=== PATIENT | female | born 1985 | race Caucasian/White ===

== ENCOUNTER 2018-03-09 09:53 | Inpatient (IN) | payer OTHER ==
[2018-03-09] MEDS ORDERED: LIDOCAINE 1% 300 MG/30 ML SDV SC PRN (10:06)
[2018-03-09] MEDS ORDERED: MISOPROSTOL 200 MCG TAB PR PRN (10:06)
[2018-03-09] MEDS ORDERED: OXYTOCIN/RINGERS LACTATE 1,000 ML IV PRN (10:06)
[2018-03-09] MEDS ORDERED: TERBUTALINE SULFATE 1 MG/ML VIAL IV PRN (10:06)
[2018-03-09] MEDS ORDERED: LR 1,000 ML IV PRN (10:06)
[2018-03-09] MEDS ORDERED: IBUPROFEN 600 MG TAB PO PRN (10:06)
[2018-03-09] MEDS ORDERED: EPSOM SALT 454 GM TP PRN (10:06)
[2018-03-09] MEDS ORDERED: OLIVE OIL 118 ML BTL MISC PRN (10:06)
[2018-03-09] MEDS ORDERED: PENICILLIN G POTASSIUM 5,000,000 UNIT in D5W 150 ML IV ONE (10:17)
[2018-03-09 10:41] LABS: PLATELET COUNT 247 10^3/uL (150-400)
[2018-03-09] MEDS ORDERED: LR 500 ML IV PRN (11:09)
[2018-03-09] MEDS ORDERED: OXYTOCIN/RINGERS LACTATE 500 ML IV SCH (11:30)
--- NOTE | 2018-03-09 11:38 | PDGENHP ---
History and Physical History and Physical: CARE: ALPESH Champagne HPI: Patient is a 32 yo G 2 P 1 @ 37.5 weeks that presents to L&D with complaints of PROM on 03/07 at 22:30. She had intermittent contractions at home for past 36 hours but no strong labor. She has not had any exams. She has had clear fluid, afebrile, denies pain or strong contractions at this time. EDC: 03/25/18 which is based on LMP: 06/18/17 which is known. Pt did not have u/ s during this . Her is complicated by: n/a Review of Systems: Constitutional: Denies any fever, chills, or fatigue HEENT: denies any visual changes, difficulty swallowing, hearing loss Cardiovascular: Denies any chest pain, palpitations, leg swelling Respiratory: denies any cough, wheezing, or shortness of breathe GI: Denies any nausea, vomiting, diarrhea, constipation : denies any dysuria, urgency, frequency, vaginal bleeding Musculoskeletal: denies any muscle or bone pain Skin: denies any rashes Neuro: denies any headache, seizures, lightheadedness, dizziness, or loss of consciousness Psychiatric: denies any depression, anxiety, or SI/HI thoughts HISTORY: Previous OB history: 7# Baby Boy 2016, no alcohol, no tobacco Social history: , SAHM Family history: none reported Past medical history: thyroid nodule Past surgical history: thyroid biopsy in 2010 Medications: PNV, blood builder Allergies (list reaction): NKDA LABS: Rh: A+ ABS: Neg Rubella: Immune HbsAg: NR HIV: NR VDRL: NR 1hr: random glucose 95-105 GC: Not tested this Chlamydia: Not tested this Pap: Normal with PCP GBS: positive BMI: (prepreg) 20 PHYSICAL EXAM: Constitutional: WN, A&Ox3 HEENT: normocephalic atraumatic, supple Heart: RRR, no murmur Chest: CTA-B Skin: warm, dry, intact Abdomen: Soft, nontender, gravid SVE: not performed due to prolonged rupture Extremities: no edema, negative homans sign Neuro: grossly normal Psych: normal affect assessment: FHT baseline 140, +accels, no decels, moderate variability Contractions: irregular Assessment: 1) 32 yo G 2 P 1 with IUP@ 37.5 weeks 2) PROM, no active labor 3) GBS pos 4) Cat 1 FHR tracing Plan: 1) Admit to L&D 2) [ ]
[2018-03-09] MEDS ORDERED: OLIVE OIL 118 ML BTL ONE (11:50)
[2018-03-09] MEDS ORDERED: LIDOCAINE 1% 300 MG/30 ML SDV ONE (11:50)
[2018-03-09] MEDS ORDERED: MISOPROSTOL 200 MCG TAB ONE (11:51)
[2018-03-09] MEDS ORDERED: OXYTOCIN 10 UNIT/ML VIAL ONE (11:51)
[2018-03-09] MEDS ORDERED: AMMONIA AROMATIC 1 EACH AMP IH ONE (11:51)
[2018-03-09] MEDS ORDERED: TERBUTALINE SULFATE 1 MG/ML VIAL ONE (11:51)
[2018-03-09] MEDS: PENICILLIN G POTASSIUM 2,500,000 UNIT in D5W 150 ML IV SCH ×2 (15:05→19:04)
--- NOTE | 2018-03-09 16:34 | OBPROG ---
Labor Progress Note Assessment/Plan: Assessment: Term IUP at 37.5 weeks PROM x 42 hours Plan: pitocin augmentation anticipate 03/09/18 16:30 Subjective/Intrapartum Course: 03/09/18 16:31 VSS, ctx irregular, denies pain, continues to leak clear fluid Objective: 03/09/18 10:15 Patient ABO/Rh A POSITIVE 03/09/18 10:15 VSS, afebrile - SVE Membranes: SROM Amniotic Fluid Color: Clear - Contraction Pattern Assessment Current Contraction Pattern: Irregular - AP Antepartum Course: 03/09/18 16:35 Denies painful ctx, FOB and RM at bedside for support, pitocin at 7mU - Physical Exam General Appearance: WD/WN, alert Estimated Weight: 2501-3400g CNM Assessment - Uterine Assessment Contraction Strength: Mild Uterine Resting Tone: Palpates Soft Oxytocin Orders Assessment - Pre-Induction/Augmentation Assessment Gestational Age: 37 week(s) and 5 day(s) ICD10 Worksheet Patient Problems: Problems Problem Status Onset Premature rupture of membranes Acute
--- NOTE | 2018-03-09 19:16 | OBPROG ---
Labor Progress Note Assessment/Plan: Assessment: Term IUP at 37.5 weeks PROM x 42 hours Plan: pitocin augmentation anticipate 03/09/18 16:30 Subjective/Intrapartum Course: 03/09/18 16:31 VSS, ctx irregular, denies pain, continues to leak clear fluid 03/09/18 19:15 Feeling stronger contractions, requests SVE. Objective: 03/09/18 10:15 Patient ABO/Rh A POSITIVE 03/09/18 10:15 - SVE Dilation (cm): 6 Effacement (%): 80 Station: -1 Membranes: SROM Amniotic Fluid Color: Clear - Contraction Pattern Assessment Current Contraction Pattern: Regular (2-3 min) - FHR Assessment Zheng FHR (bpm): 135 FHR Pattern Variability: Moderate FHR Category: 1 - AP Antepartum Course: 03/09/18 16:35 Denies painful ctx, FOB and RM at bedside for support, pitocin at 7mU - Physical Exam Estimated Weight: 2501-3400g Oxytocin Orders Assessment - Pre-Induction/Augmentation Assessment Gestational Age: 37 week(s) and 5 day(s) Estimated Weight: 2501-3400g ICD10 Worksheet Patient Problems: Problems Problem Status Onset Premature rupture of membranes Acute
--- NOTE | 2018-03-09 22:06 | OBPROG ---
Labor Progress Note Assessment/Plan: Assessment: Term IUP at 37.5 weeks PROM x 42 hours Plan: pitocin augmentation anticipate 03/09/18 16:30 Subjective/Intrapartum Course: 03/09/18 16:31 VSS, ctx irregular, denies pain, continues to leak clear fluid 03/09/18 19:15 Feeling stronger contractions, requests SVE. Objective: 03/09/18 10:15 Patient ABO/Rh A POSITIVE 03/09/18 10:15 - SVE Dilation (cm): 8 Effacement (%): 80 Station: 0 (q2min) Membranes: SROM Amniotic Fluid Color: Clear - Contraction Pattern Assessment Current Contraction Pattern: Regular (2-3 min) - FHR Assessment Zheng FHR (bpm): 130 FHR Pattern Variability: Moderate FHR Category: 1 - AP Antepartum Course: 03/09/18 16:35 Denies painful ctx, FOB and RM at bedside for support, pitocin at 7mU 03/09/18 22:04 Stong regular ctx. FOB and RM at bedside. Pit at 16 mU. Pressure and urge to push with some ctx. - Physical Exam Estimated Weight: 2501-3400g Oxytocin Orders Assessment - Pre-Induction/Augmentation Assessment Gestational Age: 37 week(s) and 5 day(s) Estimated Weight: 2501-3400g ICD10 Worksheet Patient Problems: Problems Problem Status Onset Premature rupture of membranes Acute
--- NOTE | 2018-03-09 23:30 | OBDEL ---
Info Type: Vaginal Presentation at Delivery: Vertex L&D Analgesia/Anesthesia Type: None GBS+: Yes (penicillin) Intrapartum Medications: Generic Name Dose Route Start Last Admin Trade Name Freq PRN Reason Stop Dose Admin Lactated Ringer's 1,000 mls @ 0 mls/hr 03/09/18 10:06 03/09/18 10:51 Lr IV 03/10/18 10:05 1,000 mls PRN PRN Administration SEE PROTOCOL CONDITIONS Protocol Per Protocol Penicillin G Potassium 2,500, 155 mls @ 155 mls/hr 03/09/18 14:00 03/09/18 19 :04 000 unit/ Dextrose IV 04/08/18 13:59 155 mls [id number] DIXIE Administration Protocol Oxytocin/Lactated Ringer's 500 mls @ 0 mls/hr 03/09/18 11:30 03/09/18 12:22 Pitocin 30 Units/Lr (Premix) IV 09/05/18 11:29 500 mls CONT DIXIE Administration Protocol Per Protocol Discontinued Medications Generic Name Dose Route Start Last Admin Trade Name Freq PRN Reason Stop Dose Admin Penicillin G Potassium 5,000, 160 mls @ 160 mls/hr 03/09/18 10:17 03/09/18 10 :51 000 unit/ Dextrose IV 03/09/18 11:16 160 mls ONCE ONE Administration Protocol - Hospital Course Intrapartum: 03/09/18 16:31 VSS, ctx irregular, denies pain, continues to leak clear fluid 03/09/18 19:15 Feeling stronger contractions, requests SVE. 03/09/18 23:28 FHT reassuring throughout 1st stage of labor Indications for Delivery: SROM Vaginal Delivery - Delivery Provider Delivery Physician/CNM: Janiya Cohn - Labor and Delivery Onset of Contractions Date: 03/09/18 Onset of Contractions Time: 18:30 Onset of Contractions Type: Augmented Rupture of Membranes Date: 03/07/18 Rupture of Membranes Time: 23:30 Rupture of Membranes Type: Spontaneous Amniotic Fluid Color: Clear Dilation Complete Date: 03/09/18 Dilation Complete Time: 22:45 Placenta Delivery Date: 03/09/18 Placenta Delivery Time: 23:08 Total Hours of Labor: 4 Laceration: 1st Degree (no repair) Vaginal Sponge Count Correct: Yes Vaginal Needle Count Correct: Yes Vaginal Sweep Performed: Yes EBL: 300 Delivery Events: Nuchal Cord - Medications Labor Augmentation/Induction Methods Used: Pitocin Labor Augmentation/Induction Indication: Inadequate Contraction Frequency, Inadequate Contraction Strength [place] Data KVNG: 03/25/18 Gestational Age: 37 week(s) and 5 day(s) Zheng Delivery Date: 03/09/18 Delivery Time: 22:53 Sex of : Female Score (1 Min): 8 Score (5 Min): 9 ICD10 Worksheet Patient Problems: Problems Problem Status Onset Premature rupture of membranes Acute
[2018-03-09] MEDS ORDERED: DOCUSATE SODIUM 100 MG CAP PO PRN (23:31)
--- NOTE | 2018-03-10 01:10 | SOAPPROG ---
SOAP Progress Note Assessment/Plan: Assessment: PP x 2 hours Up to bathroom to empty bladder and pt passed large clot Heavy PP bleeding Plan: Infuse second bag of pit 800 mcg cytotec placed monitor 03/10/18 01:08 Subjective: Called to pt room by RN for heavy PP bleeding. Objective: Laboratory Results 03/09/18 10:15 VSS - Pending Discharge Pending Discharge Within 24 Hours: No ICD10 Worksheet Patient Problems: Problems Problem Status Onset Premature rupture of membranes Acute
[2018-03-10] MEDS: PENICILLIN G POTASSIUM 2,500,000 UNIT in D5W 150 ML IV SCH ×4 (02:49→13:49)
[2018-03-10] MEDS: ACETAMINOPHEN 325 MG TAB PO SCH ×2 (02:49→10:16)
[2018-03-10] MEDS ORDERED: IBUPROFEN 600 MG TAB PO SCH (05:30)
--- NOTE | 2018-03-10 10:43 | OBPP ---
Progress Note Assessment/Plan: Assessment: Plan: 03/10/18 10:41 PPD #1 Establishing Bleeding WNL P: Would like to discharge home tomorrow. Advised to take ibuprofen as needed for pain. Subjective/ Course: 03/10/18 10:40 Doing well. Bleeding has been minimal since last nights clots and receiving pitocin and cytotec. Baby is well Pain minimal. Not taking ibuprofen. Objective: 03/09/18 10:15 Patient ABO/Rh A POSITIVE 03/09/18 10:15 Temp Pulse Resp BP Pulse Ox 37.6 C 95 15 107/69 98 03/10/18 10:00 03/10/18 10:00 03/10/18 10:00 03/10/18 10:00 03/10/18 10:00 Uterine Position/Fundal Height: Umbilicus -1 Uterine Tone: Firm
[2018-03-10] MEDS ORDERED: IBUPROFEN 600 MG TAB PO PRN (10:45)
[2018-03-10] MEDS ORDERED: ACETAMINOPHEN 325 MG TAB PO PRN (10:45)
[2018-03-11 08:48] VITALS: BP 103/70
--- NOTE | 2018-03-11 09:38 | OBGCSDC ---
General Delivery Information - General Info : 2 Para: 2 Abortions: 0 Type: Vaginal L&D Analgesia/Anesthesia Type: None Admission Date: 03/09/18 Labs: Patient ABO/Rh A POSITIVE 03/09/18 10:15 Hct 38.6 % (38.0-47.0) 03/09/18 10:15 - Hospital Course Antepartum: 03/09/18 16:35 Denies painful ctx, FOB and RM at bedside for support, pitocin at 7mU 03/09/18 22:04 Stong regular ctx. FOB and RM at bedside. Pit at 16 mU. Pressure and urge to push with some ctx. Intrapartum: 03/09/18 16:31 VSS, ctx irregular, denies pain, continues to leak clear fluid 03/09/18 19:15 Feeling stronger contractions, requests SVE. 03/09/18 23:28 FHT reassuring throughout 1st stage of labor : 03/10/18 10:40 Doing well. Bleeding has been minimal since last nights clots and receiving pitocin and cytotec. Baby is well Pain minimal. Not taking ibuprofen. 03/11/18 09:33 S) Pt doing well, reports min pain and bleeding. she is ambulating and voiding without difficulty. She is . She desires discharge home today. O) VSS, afebrile constitutional: WNF, A&Ox3 HEENT: normocephalic, atraumatic, supple Heart: RRR, No murmur Chest: CTA-B Breasts: soft, nontender, not engorged, nipples Abdomen: Soft, nontender Uterus: Firm at U-2 Lochia: Minimal rubra Perineum: Intact, healing well Extremities: Trace edema, and negative Stefan's sign Neuro: Grossly normal A) 32-year-old S/P PPD#2 P) Discharge home today Continue Pelvic rest x6wks Discussed danger signs (infection, preeclampsia, depression, heavy bleeding, etc ) Pt desires to f/u with home CPM, aware able to f/u with [facility] as needed/desired Vaginal - Delivery Provider Delivery Physician/CNM: Janiya Cohn - Diagnosis Labor: Augmented Rupture of Membranes Type: Spontaneous Amniotic Fluid Color: Clear Laceration: 1st Degree (no repair) Delivery Events: Nuchal Cord - Delivery EBL: 300 [place] Data KVNG: 03/25/18 Gestational Age: 38 week(s) and 0 day(s) Zheng Delivery Date: 03/09/18 Delivery Time: 22:53 Sex of : Female [place] Weight (gm): 2676 g Score (1 Min): 8 Score (5 Min): 9 Discharge Information - Discharge Information Condition: Good
== END 2018-03-11 11:13 | disposition home or self-care (01) | DRG 807 ==
LOC: FLD 09:53 → FOB 03-10 02:35
PROVIDERS: ADMIT Advanced Practice Midwife; ATTEND Advanced Practice Midwife
DX: O42.12 Full-term premature rupture of membranes, onset of labor more than 24 hours following rupture (principal); O99.824 Streptococcus B carrier state complicating childbirth; O70.0 First degree perineal laceration during delivery; O69.81X0 Labor and delivery complicated by cord around neck, without compression, not applicable or unspecified; Z3A.38 38 weeks gestation of pregnancy; Z37.0 Single live birth
CPT/HCPCS: J2540; J2590; J3105